=== PATIENT | male | born 1965 | race African-American/Black ===

== ENCOUNTER 2023-09-02 07:35 | Emergency (ER) | payer MEDICAID ==
[~2023-09-02] VITALS: Ht 172.7 cm; Wt 104.5 kg
[2023-09-02 07:47] VITALS: TEMP 97.7
[2023-09-02 08:35] LABS: BASOPHILS % (AUTO) 0.4 % (0.0-2.0); EOSINOPHILS % (AUTO) 5.5 % (1.0-6.0); HEMATOCRIT 39.8 % (41-53); HEMOGLOBIN 13.2 g/dL (13.5-17.5); LYMPHOCYTES # (AUTO) 0.9 K/uL (1.0-4.8); LYMPHOCYTES % (AUTO) 20.1 % (22.0-44.0); MEAN CORPUSCULAR HEMOGLOBIN 29.3 pg (26.0-34.0); MEAN CORPUSCULAR HGB CONC 33.2 G/dL (31.0-37.0); MEAN CORPUSCULAR VOLUME 88 fL (80-100); MONOCYTES # (AUTO) 0.5 K/uL (0.1-1.0); MONOCYTES % (AUTO) 11.4 % (2.0-9.0); NEUTROPHILS # (AUTO) 2.8 K/uL (1.8-7.7); NEUTROPHILS % (AUTO) 62.6 % (40.0-70.0); PLATELET COUNT (AUTO) 258 K/uL (150-450); RED BLOOD CELL COUNT(AUTO) 4.52 MIL/uL (4.50-5.90); RED CELL DISTRIBUTION WIDTH 16.5 % (11.5-14.5); WHITE BLOOD COUNT (AUTO) 4.4 K/uL (4.5-11.0)
[2023-09-02 08:48] LABS: INR 1.1 (0.9-1.1); PROTHROMBIN TIME 11.4 SEC (9.4-11.6)
[2023-09-02 08:49] LABS: ANION GAP 8 mmol/L (8-16); CALCIUM, TOTAL 8.9 mg/dL (8.8-10.5); CARBON DIOXIDE 27 mmol/L (22-29); CHLORIDE 102 mmol/L (98-107); CREATININE 1.17 mg/dL (0.60-1.30); GLOMERULAR FILTR. RATE CALC > 60 mL/min (>60); GLUCOSE,RANDOM 84 mg/dL (70-110); POTASSIUM 3.8 mmol/L (3.5-5.1); SODIUM SERUM 137 mmol/L (136-145); UREA NITROGEN, BLOOD 12 mg/dL (7-18)
[2023-09-02 09:01] LABS: TROPONIN I-HIGH SENSITIVITY Less Than 4 ng/L (<76)
[2023-09-02 09:10] LABS: B-TYPE NATRIURETIC PEPTIDE 25 pg/mL (0-100)
[2023-09-02 09:15] LABS: CREATINE KINASE, TOTAL ONLY 215 U/L (39-308)
[2023-09-02] MEDS ORDERED: FURO-152 PO ×2 (09:59→16:15)
[2023-09-02] MEDS ORDERED: CEPH-558 PO ×2 (09:59→16:15)
[2023-09-02] MEDS: FUROSEMIDE 20 MG TABLET PO ONE (10:00)
[2023-09-02 10:05] VITALS: BP 131/92; PULSE 62; RESP 19
== END 2023-09-02 12:32 | disposition home or self-care (01) ==
LOC: EMS 07:35
DX: R60.0 Localized edema (principal); I10 Essential (primary) hypertension; Z98.890 Other specified postprocedural states
CPT/HCPCS: 71045; 80048; 82550; 83880; 84484; 85025; 85610; 85730; 93005; 99285; 36415-L1; 36415-TC